=== PATIENT | female | born 1975 | race Two or more races ===

== ENCOUNTER 2016-10-20 15:05 | Emergency (ER) | payer MEDICAID ==
[~2016-10-20] VITALS: Ht 154.9 cm; Wt 59.0 kg
[~2016-10-20 15:05] MED LIST: IBUPROFEN600 MG ORAL; NAPROXEN250 MG ORAL; NKM
[2016-10-20 15:56] LABS: APPEARANCE,URINE SLIGHTLY CLOUDY; KETONES,URINE 2+ (NEGATIVE); LEUKOCYTE ESTERASE ,URINE 2+ (NEGATIVE); NITRITE,URINE NEGATIVE (NEGATIVE); PH,URINE 5 (4.5-8.0); PROTEIN,URINE 3+ (NEGATIVE); UROBILINOGEN,URINE 1 MG/DL (0.0-1.0)
[2016-10-20] MEDS ORDERED: DiphenhydrAMINE 50mg/ml Inj IM ONE (16:15)
[2016-10-20] MEDS ORDERED: Metoclopramide 10mg/2ml Inj IM ONE (16:15)
[2016-10-20] MEDS ORDERED: Ketorolac 30mg Inj IM ONE (16:15)
[2016-10-20 16:16] LABS: BACTERIA,URINE FEW /HPF; SQUAMOUS EPITHELIAL CELL,UR FEW /LPF (NONE/OCC)
[2016-10-20 16:18] LABS: ICTOTEST NEGATIVE
[2016-10-20] MEDS ORDERED: IBUPROFEN600 MG ORAL (16:51)
[2016-10-20] MEDS ORDERED: REGLAN10 MG ORAL (16:51)
--- NOTE | 2016-10-20 17:14 | Emergency Room Report ---
History of Present Illness General Chief Complaint: Headache Source: Patient Present Illness HPI The patient is a 41-year-old female presenting with headache and nausea. Symptoms began 2 days prior and is described as a 10 out of 10 dull ache to the eyes and the back of the head. Also radiates to the neck. She has tried naproxen at home which temporarily helps. She does admit to a history of migraines but has not had one recently. This feels similar. She denies other symptoms including fever, chills, vomiting, chest pain, shortness of breath, numbness or tingling, rash Allergies: Coded Allergies: No Known Allergies (Unverified , 09/13/12) Patient History Past Medical History: see triage record Pertinent Family History: none Reviewed Nursing Documentation: PMH: Agreed, PSxH: Agreed Nursing Documentation-PMH Past Medical History: No Stated History Review of Systems All Other Systems: negative except mentioned in HPI Physical Exam Vital Signs Date Time Temp Pulse Resp B/P Pulse Ox O2 Delivery O2 Flow Rate FiO2 10/20/16 15:20 98.1 82 16 129/70 97 Room Air Sp02 EP Interpretation: reviewed, normal General Appearance: no apparent distress, alert, GCS 15, non-toxic Head: normocephalic, atraumatic Eyes: bilateral eye PERRL, bilateral eye normal inspection ENT: hearing grossly normal, normal pharynx, no angioedema, normal voice Neck: full range of motion, supple/symm/no masses Respiratory: chest non-tender, lungs clear, normal breath sounds, speaking full sentences Cardiovascular #1: regular rate, rhythm, no edema Musculoskeletal: back normal, gait/station normal, normal range of motion, non- tender Neurologic: alert, oriented x3, responsive, motor strength/tone normal, sensory intact, speech normal Psychiatric: judgement/insight normal, memory normal, mood/affect normal, no suicidal/homicidal ideation Skin: normal color, no rash, warm/dry, well hydrated Medical Decision Making PA Attestation Dr. Mackenzie is my supervising physician. Patient management was discussed with my supervising physician Diagnostic Impression: Primary Impression: Migraine headache Qualified Codes: G43.909 - Migraine, unspecified, not intractable, without status migrainosus ER Course The patient is a 41-year-old female presenting with headache and nausea. Differential diagnoses include but not limited to Migraine, tension headache, CVA, cluster SPANGLER, tension SPANGLER, among others PE: vitals WNL. NAD Head is normocephalic atraumatic. Neck is soft and supple. Nontender HEENT exam unremarkable Urinalysis unremarkable. Negative The patient is given IM Toradol, Benadryl, and Reglan. She soon after feels much better. She'll be discharged home with a prescription for Motrin and Reglan. ER precautions are given Laboratory Tests Test 10/20/16 15:39 Urine Color Red Urine Appearance Slightly cloudy Urine pH 5 (4.5-8.0) Urine Specific [place] 1.020 (1.005-1.035) Urine Protein 3+ (NEGATIVE) H Urine Glucose (UA) Negative (NEGATIVE) Urine Ketones 2+ (NEGATIVE) H Urine Occult Blood 5+ (NEGATIVE) H Urine Nitrite Negative (NEGATIVE) Urine Bilirubin 2+ (NEGATIVE) H Urine Ictotest Negative Urine Urobilinogen 1 MG/DL (0.0-1.0) H Urine Leukocyte Esterase 2+ (NEGATIVE) H Urine RBC 10-15 /HPF (0 - 2) H Urine WBC 2-4 /HPF (0 - 2) Urine Squamous Epithelial Cells Few /LPF (NONE/OCC) Urine Bacteria Few /HPF (NONE) Urine HCG, Qualitative Negative Lab Results Impression Not consistent with UTI Last Vital Signs Date Time Temp Pulse Resp B/P Pulse Ox O2 Delivery O2 Flow Rate FiO2 10/20/16 15:20 98.1 82 16 129/70 97 Room Air Status: improved Disposition: HOME, SELF-CARE Condition: Improved Scripts Metoclopramide Hcl* (REGLAN*) 10 Mg Tablet 10 MG ORAL THREE TIMES A DAY, #15 TAB Prov: TERNATIAN,KIMMIE P.A. 10/20/16 Ibuprofen* (MOTRIN*) 600 Mg Tablet 600 MG ORAL Q8H Y for For Pain, #30 TAB 0 Refills Prov: TERZIAN,KIMMIE P.A. 10/20/16 Patient Instructions: Migraine Headache Additional Instructions: I discussed my findings with the patient. All questions and concerns have been answered. Treatment and medication compliance have been addressed. I advised the patient that they need to follow up with PMD in 3-5 days. Return to ED if symptoms worsen, new symptoms arise, or if needed for any reason. Patient verbalized understanding of discharge instructions. KIMMIE STONE Oct 20, 2016 17:14
[2016-10-20 17:15] VITALS: BP 105/67
== END 2016-10-20 17:17 | disposition home or self-care (01) ==
LOC: EMR 15:55
DX: G43.909 Migraine, unspecified, not intractable, without status migrainosus (principal); R11.0 Nausea
CPT/HCPCS: 81003; 81025; 96372; 99284; J1200; J1885; J2765

== ENCOUNTER 2017-08-07 22:11 | Emergency (ER) | payer MEDICAID ==
[~2017-08-07] VITALS: Ht 121.9 cm; Wt 74.8 kg
[~2017-08-07 22:11] MED LIST changes: +REGLAN10 MG ORAL
[2017-08-07 22:48] VITALS: BP 118/59
--- NOTE | 2017-08-07 23:08 | Emergency Room Report ---
History of Present Illness General Chief Complaint: Allergic Reaction Source: Patient Present Illness HPI 41-year-old female p/w rash on face arms abdomen for 2 days. Rash is limited to skin and does not involve mucosal surfaces. ? severe itchiness, no pain. Denies fever or chills, throat swelling, sob. No n/v/d. No new detergents, no exposure to outside grass/plants/poison evelyn, no new pets. Allergies: Coded Allergies: No Known Allergies (Unverified , 09/13/12) Patient History Past Medical History: see triage record Past Surgical History: none Pertinent Family History: none Last Menstrual Period: last sunday Reviewed Nursing Documentation: PMH: Agreed; PSxH: Agreed Nursing Documentation-PMH Past Medical History: No Stated History Review of Systems All Other Systems: negative except mentioned in HPI Physical Exam Vital Signs Date Time Temp Pulse Resp B/P (MAP) Pulse Ox O2 Delivery O2 Flow Rate FiO2 08/07/17 22:14 98.4 77 18 118/59 98 Room Air 98.4 Sp02 EP Interpretation: reviewed, normal General Appearance: alert, GCS 15, non-toxic, mild distress Head: normocephalic, atraumatic Eyes: bilateral eye normal inspection, bilateral eye PERRL, bilateral eye EOMI ENT: normal ENT inspection, normal pharynx, normal voice, moist mucus membranes Neck: normal inspection, full range of motion, supple Respiratory: normal inspection, lungs clear, normal breath sounds, no respiratory distress, no retraction, no wheezing, speaking full sentences, chest symmetrical Cardiovascular #1: normal inspection, regular rate, rhythm, normal capillary refill Cardiovascular #2: 2+ radial (R), 2+ radial (L) Gastrointestinal: normal inspection, non tender, soft, non-distended, no guarding Musculoskeletal: normal inspection, back normal, normal range of motion, non- tender Neurologic: normal inspection, alert, oriented x3, responsive, motor strength/ tone normal, sensory intact, normal gait, speech normal Psychiatric: normal inspection, judgement/insight normal, memory normal Skin: other - Rash noted on face, mostly around chin and cheek, blanching, slightly raised, maculopapular, seem rash also noted on abdomen and arms, nontender Medical Decision Making Diagnostic Impression: Primary Impression: Allergic reaction ER Course 41-year-old female with rash DDX: Allergic reaction vs. eczema vs. contact dermatitis vs. viral exanthem vs cellulitis Plan: Benadryl Decadron ER course: Patient has remained stable in ED No respiratory symptoms, no rapid spread of rash Disposition: Patient will be discharged to home. Strict return precautions discussed with patient such as fever, chills, rapid spread of rash, chest pain, sob, throat swelling, n/v/d. Patient is to follow up with their PMD within 5 days. Patient verbalized understanding and agrees with plan. Please note that this Emergency Department Report was dictated using [employer] sales representative technology software, occasionally this can lead to erroneous entry secondary to interpretation by the dictation equipment Last Vital Signs Date Time Temp Pulse Resp B/P (MAP) Pulse Ox O2 Delivery O2 Flow Rate FiO2 08/07/17 22:48 98.4 77 18 118/59 98 Room Air 98.4 Disposition: HOME, SELF-CARE Condition: Stable Patient Instructions: Allergies, Rash, [id number] Additional Instructions: PLEASE SEE YOUR DOCTOR IN 1 WEEK WITHOUT FAIL Marbin Burns M.D. August 07, 2017 23:08
[2017-08-07] MEDS ORDERED: Dexamethasone 4mg/ml vial IM ONE (23:15)
[2017-08-07 23:47] VITALS: BP 118/59
== END 2017-08-07 23:50 | disposition home or self-care (01) ==
LOC: EMR 22:43
DX: T78.40XA Allergy, unspecified, initial encounter (principal); X58.XXXA Exposure to other specified factors, initial encounter; R21 Rash and other nonspecific skin eruption
CPT/HCPCS: 96372; 99283; J1100

== ENCOUNTER 2018-01-21 21:00 | Emergency (ER) | payer MEDICAID ==
[~2018-01-21] VITALS: Ht 121.9 cm; Wt 72.6 kg
[2018-01-21 21:13] VITALS: BP 109/57
[2018-01-21] MEDS ORDERED: Acetaminophen 500mg (ES) tab ORAL ONE (21:15)
[2018-01-21] MEDS ORDERED: TAMIFLU75 MG ORAL (21:19)
[2018-01-21] MEDS ORDERED: IBUPROFEN600 MG ORAL (21:19)
[2018-01-21] MEDS ORDERED: TYLENOL325 MG ORAL (21:19)
[2018-01-21] MEDS ORDERED: AMOXICILLIN500 MG ORAL (21:19)
--- NOTE | 2018-01-21 21:21 | Emergency Room Report ---
History of Present Illness General Chief Complaint: Flu Like Symptoms Source: Patient Present Illness HPI Patient presents with complaints of sore throat fever cough and congestion Reports that symptoms started 2-3 days ago Patient having diffuse body cramping as well Sore throat is 5 out of 10 worse with swallowing denies any difficulty breathing or shortness of breath denies any recent travel Denies any neck pain or photophobia Denies any focal weakness denies any recent travel Allergies: Coded Allergies: No Known Allergies (Unverified , 09/13/12) Patient History Past Medical History: see triage record Pertinent Family History: none Last Menstrual Period: 01/10/18 Now: No Reviewed Nursing Documentation: PMH: Agreed; PSxH: Agreed Nursing Documentation-PMH Past Medical History: No Stated History Review of Systems All Other Systems: negative except mentioned in HPI Physical Exam Vital Signs Date Time Temp Pulse Resp B/P (MAP) Pulse Ox O2 Delivery O2 Flow Rate FiO2 01/21/18 21:07 102.9 109 16 109/57 97 01/21/18 21:13 Room Air Sp02 EP Interpretation: reviewed, normal General Appearance: well appearing, no apparent distress Head: normocephalic, atraumatic Eyes: bilateral eye PERRL, bilateral eye EOMI ENT: hearing grossly normal, normal voice, TMs + canals normal, uvula midline, pharyngeal erythema Neck: full range of motion, supple, no meningismus, no bony tend Respiratory: lungs clear, normal breath sounds, no rhonchi, no respiratory distress, no retraction, no accessory muscle use Cardiovascular #1: normal peripheral pulses, regular rate, rhythm, no edema, no gallop, no JVD, no murmur Gastrointestinal: normal bowel sounds, non tender, soft, no mass, no organomegaly, non-distended, no guarding, no hernia, no pulsatile mass, no rebound Genitourinary: no CVA tenderness Musculoskeletal: normal inspection Neurologic: oriented x3, responsive, surgical corsetier III-XII nml as tested, motor strength/ tone normal, sensory intact Psychiatric: mood/affect normal Skin: normal color, no rash, warm/dry, palpation normal Lymphatic: normal inspection, no adenopathy Medical Decision Making Diagnostic Impression: Primary Impression: Influenza-like symptoms Additional Impression: pharyngitis ER Course Patient has clinical findings and history consistent with flulike symptoms given the pharyngeal exam however there is evidence of pharyngitis, which appears to be bacterial as well given the erythema Patient provided with Tylenol for the fever here does not appear septic or toxic And is appropriate for initial conservative outpatient trial with appropriate medication Last Vital Signs Date Time Temp Pulse Resp B/P (MAP) Pulse Ox O2 Delivery O2 Flow Rate FiO2 01/21/18 21:13 109 16 Room Air 01/21/18 21:13 103.0 109/57 97 Status: improved Disposition: HOME, SELF-CARE Condition: Improved Scripts Acetaminophen (Tylenol) 325 Mg Tablet 650 MG ORAL Q8HR PRN for Prn Pain/Headache/Temp > 101, #20 TAB 0 Refills Prov: Octavio Gonzalez DO 01/21/18 Ibuprofen* (MOTRIN*) 600 Mg Tablet 600 MG ORAL Q8H PRN for For Pain, #20 TAB 0 Refills Prov: Octavio Gonzalez DO 01/21/18 Amoxicillin* (AMOXIL*) 500 Mg Capsule 500 MG ORAL THREE TIMES A DAY, #21 CAP Prov: Octavio Gonzalez DO 01/21/18 Oseltamivir Phosphate (Tamiflu) 75 Mg Capsule 75 MG ORAL TWICE A DAY for 5 Days, CAP Prov: Octavio Gonzalez DO 01/21/18 Patient Instructions: Influenza, Adult, [id number], Pharyngitis, Yshp-he-Dads Additional Instructions: Patient is provided with the discharge instructions notified to follow up with primary doctor in the next 2-3 days otherwise return to the er with any worsening symptoms. Please note that this report is being documented using [employer] technology. This can lead to erroneous entry secondary to incorrect interpretation by the dictating instrument. Octavio Gonzalez DO Jan 21, 2018 21:21
[2018-01-21 21:28] VITALS: BP 109/57
== END 2018-01-21 21:29 | disposition home or self-care (01) ==
LOC: EMR 21:17
DX: J02.9 Acute pharyngitis, unspecified (principal)
CPT/HCPCS: 99283

== ENCOUNTER 2018-05-22 11:01 | Emergency (ER) | payer MEDICAID ==
[~2018-05-22] VITALS: Ht 152.4 cm; Wt 78.5 kg
[~2018-05-22 11:01] MED LIST changes: +AMOXICILLIN500 MG ORAL; +TAMIFLU75 MG ORAL; +TYLENOL325 MG ORAL
[2018-05-22 11:08] VITALS: BP 97/59
[2018-05-22] MEDS ORDERED: Meclizine 25mg tab ORAL ONE (11:45)
[2018-05-22] MEDS ORDERED: Metoclopramide 10mg/2ml Inj IVP ONE (11:45)
--- NOTE | 2018-05-22 11:56 | NUR ---
ED Nurse Note: PT. AAOX4. AMBULATORY CAME IN TO ER DUE TO N/V SINCE 5AM. PT. DENIES EATING ANYTHING DIFFERENT. DENIES PAIN. DENIES DIARRHEA. PT. IS C/O DIZZINESS
--- NOTE | 2018-05-22 12:00 | NUR ---
ED Nurse Note: TURNED OFF THE LIGHTS TO LESSEN THE ENVIRONMENTAL STIMULUS
[2018-05-22] MEDS ORDERED: ONDANSETRON ODT4 MG BC (12:37)
[2018-05-22] MEDS ORDERED: MECLIZINE HCL25 MG ORAL (12:37)
[2018-05-22 13:09] VITALS: BP 101/55
[2018-05-22 13:10] VITALS: BP 97/59
--- NOTE | 2018-05-23 06:46 | Emergency Room Report ---
History of Present Illness General Chief Complaint: Vomiting Source: Patient Present Illness HPI 42-year-old female presents ED for evaluation. Complaining of dizziness and vomiting. Started this morning. Describes room spinning sensation. Worse with sudden head movements. Notes nausea and vomiting. Denies headache or blurry vision. Denies chest pain or shortness of breath. Denies fevers or chills. No other aggravating relieving factors. Denies any other associated symptoms Allergies: Coded Allergies: No Known Allergies (Unverified , 09/13/12) Patient History Past Medical History: none Past Surgical History: none Pertinent Family History: none Social History: Denies: smoking, alcohol use, drug use Now: No : 3 Immunizations: UTD Reviewed Nursing Documentation: PMH: Agreed; PSxH: Agreed Nursing Documentation-PMH Past Medical History: No Stated History Review of Systems All Other Systems: negative except mentioned in HPI Physical Exam Vital Signs Date Time Temp Pulse Resp B/P (MAP) Pulse Ox O2 Delivery O2 Flow Rate FiO2 05/22/18 11:08 68 19 Room Air 05/22/18 11:08 97.5 97/59 100 Sp02 EP Interpretation: reviewed, normal General Appearance: no apparent distress, alert, GCS 15, non-toxic Head: normocephalic, atraumatic Eyes: bilateral eye normal inspection, bilateral eye PERRL ENT: hearing grossly normal, normal pharynx, no angioedema, normal voice Neck: full range of motion, supple/symm/no masses Respiratory: chest non-tender, lungs clear, normal breath sounds, speaking full sentences Cardiovascular #1: regular rate, rhythm, no edema Cardiovascular #2: 2+ carotid (R), 2+ carotid (L), 2+ radial (R), 2+ radial (L) , 2+ dorsalis pedis (R), 2+ dorsalis pedis (L) Gastrointestinal: normal bowel sounds, non tender, soft, non-distended, no guarding, no rebound Rectal: deferred Genitourinary: normal inspection, no CVA tenderness Musculoskeletal: back normal, gait/station normal, normal range of motion, non- tender Neurologic: alert, oriented x3, responsive, welt sewer III-XII nml as tested, motor strength/tone normal, sensory intact, cerebellar normal, normal gait, speech normal Psychiatric: judgement/insight normal, memory normal, mood/affect normal, no suicidal/homicidal ideation Reflexes: 3+ bicep (R), 3+ bicep (L), 3+ tricep (R), 3+ tricep (L), 3+ knee (R) , 3+ knee (L) Skin: normal color, no rash, warm/dry, well hydrated Lymphatic: no adenopathy Medical Decision Making Diagnostic Impression: Primary Impression: Vertigo ER Course Hospital Course 42 yo F presents with dizziness, vomiting Differential diagnoses include: dehydration, vertigo, syncope Clinical course Patient placed on stretcher. on alarm security or surveillance monitor. After initial history, physical exam reveals middle-aged female in no acute distress. Cranial nerves II through XII intact. Extraocular movements normal. No nuchal rigidity. 5 out of 5 motor strength in all extremities. No ataxia Consideration for vertigo. I ordered IV fluids, Reglan and meclizine Upon reassessment patient states his symptoms have improved. Clinical findings consistent with vertigo. Given lack of risk factors my suspicion for acute processes are low. Discussed findings with patient. Safe for discharge with close outpatient follow-up. We'll provide referrals I. I feel this is a highly complex case requiring extensive working including EKG/Rhythm strip, Xray/CT/US, Blood/urine lab work, repeat exams while in ED, and administration of strong opiates/narcotics for pain control, admission to hospital or close patient follow up. Diagnosis - vertigo stable and discharged to home with prescription for meclizine, zofran. Followup with PMD. Return to ED if symptoms recur or worsen Last Vital Signs Date Time Temp Pulse Resp B/P (MAP) Pulse Ox O2 Delivery O2 Flow Rate FiO2 05/22/18 13:10 97.5 68 19 97/59 100 Room Air Status: improved Disposition: HOME, SELF-CARE Condition: Stable Scripts Meclizine Hcl* (MECLIZINE*) 25 Mg Tablet 25 MG ORAL THREE TIMES A DAY for 7 Days, TAB Prov: Javon Centeno MD 05/22/18 Ondansetron Odt* (ZOFRAN ODT*) 4 Mg Tab.rapdis 4 MG BC EVERY 8 HOURS, #10 TAB 0 Refills Prov: Javon Centeno MD 05/22/18 Referrals: NOT CHOSEN IPA/,REFERRING (PCP) [facility] Patient Instructions: Vertigo, [id number], Bteo Maneuver Self-Care Javon Centeno MD May 23, 2018 06:46
== END 2018-05-22 13:14 | disposition home or self-care (01) ==
LOC: EMR 11:22
DX: R42 Dizziness and giddiness (principal); R11.10 Vomiting, unspecified
CPT/HCPCS: 96361; 96374; 99284; J2765

== ENCOUNTER 2019-09-24 20:36 | Emergency (ER) | payer MEDICAID ==
[~2019-09-24] VITALS: Ht 160 cm; Wt 76.2 kg
[~2019-09-24 20:36] MED LIST changes: +MECLIZINE HCL25 MG ORAL; +ONDANSETRON ODT4 MG BC
[2019-09-24 20:44] VITALS: BP 127/78
--- NOTE | 2019-09-24 21:09 | Emergency Room Report ---
History of Present Illness General Chief Complaint: Upper Respiratory Illness Source: Patient Present Illness HPI 44-year-old female with no signal past medical history here complaining of 3 days of body aches, fever and chills, and few bouts of nonbloody diarrhea. Denies any chest pain, cough and congestion, shortness of breath. Denies any headache and dizziness at this time. Complains of 3 out of 10 sore throat that started today. Reports that she has been staying home with her kids and the whole time. Denies sick contact. Denies coming contact with someone who is covered positive. Patient appears to be febrile upon arrival with temperature of 100 F. O2 sat within normal limits. Has not taken medication in the Motrin for symptom relief. Denies . Denies loss of taste and smell. Allergies: Coded Allergies: No Known Allergies (Unverified , 09/13/12) COVID-19 Screening Contact w/high risk pt: Yes Experienced COVID-19 symptoms?: Yes COVID-19 Testing performed COMPUTER TESTER: No Patient History Past Medical History: see triage record Past Surgical History: none Pertinent Family History: none Now: No Immunizations: UTD Reviewed Nursing Documentation: PMH: Agreed; PSxH: Agreed Nursing Documentation-PMH Past Medical History: No Stated History Review of Systems All Other Systems: negative except mentioned in HPI Physical Exam Vital Signs Date Time Temp Pulse Resp B/P (MAP) Pulse Ox O2 Delivery O2 Flow Rate FiO2 09/24/19 20:38 100.8 104 18 127/78 (94) 96 Room Air Sp02 EP Interpretation: abnormal - Temp of 100 F General Appearance: no apparent distress, alert, GCS 15, non-toxic Head: normocephalic, atraumatic Eyes: bilateral eye normal inspection, bilateral eye PERRL ENT: hearing grossly normal, normal pharynx, no angioedema, normal voice Neck: full range of motion, supple/symm/no masses Respiratory: chest non-tender, lungs clear, normal breath sounds, no rhonchi, speaking full sentences Cardiovascular #1: regular rate, rhythm, no edema, no murmur Gastrointestinal: normal bowel sounds, non tender, soft, non-distended, no guarding, no rebound Rectal: deferred Genitourinary: no CVA tenderness Musculoskeletal: back normal Neurologic: alert, motor strength/tone normal, oriented x3, sensory intact, responsive, speech normal Psychiatric: judgement/insight normal, memory normal, mood/affect normal, no suicidal/homicidal ideation Skin: no rash Lymphatic: no adenopathy Medical Decision Making PA Attestation All my diagnosis and treatment plans were reviewed ad discussed with my supervising physician Dr. Mckeon Diagnostic Impression: Primary Impression: Suspected COVID-19 virus infection Additional Impression: URI (upper respiratory infection) ER Course 44-year-old female with no signal past medical history here complaining of 3 days of body aches, fever and chills, and few bouts of nonbloody diarrhea. Denies any chest pain, cough and congestion, shortness of breath. Denies any headache and dizziness at this time. Complains of 3 out of 10 sore throat that started today. Reports that she has been staying home with her kids and the whole time. Denies sick contact. Denies coming contact with someone who is covered positive. Patient appears to be febrile upon arrival with temperature of 100 F. O2 sat within normal limits. Has not taken medication in the Motrin for symptom relief. Denies . Denies loss of taste and smell. Ddx considered but are not limited to: strep pharyngitis, URI, tonsillitis, peritonsillar abscess, influneza, suspected coronavirus Vital signs: are WNL, pt. is afebrile H&PE are most consistent with: Suspected coronavirus ORDERS: Chest x-ray, Zofran, prednisone, azithromycin, chest x-ray, Tylenol ED INTERVENTIONS: None required at this time. DISCHARGE: At this time pt. is stable for d/c to home. Will provide printed patient care instructions, and any necessary prescriptions. Care plan and follow up instructions have been discussed with the patient prior to discharge. Patient to self quarantine for 14 days, get tested for COVID at [facility]. 401. Take medication as directed, worsening symptoms return to the emergency room. Chest X-Ray Diagnostic Results Chest X-Ray Diagnostic Results : Chest X-Ray Ordered: Yes # of Views/Limited/Complete: 1 View Indication: Other EP Interpretation: Yes CORTEZ Xray: Interpretation reviewed, by supervising MD, and agrees with findings. Interpretation: no consolidation, no effusion, no pneumothorax Impression: No acute disease Electronically Signed by: Nahal Saheli PA-C Last Vital Signs Date Time Temp Pulse Resp B/P (MAP) Pulse Ox O2 Delivery O2 Flow Rate FiO2 09/24/19 20:44 102 18 09/24/19 20:44 100.8 127/78 96 Room Air Disposition: HOME, SELF-CARE Condition: Stable Scripts Ondansetron (Zofran) 4 Mg Tablet 4 MG ORAL Q6H PRN for Nausea & Vomiting, #14 TAB Prov: Nigel Claudio 09/24/19 Acetaminophen* (TYLENOL EXTRA STRENGTH*) 500 Mg Tablet 500 MG ORAL Q8H PRN for Prn Headache/Temp > 101, #30 TAB 0 Refills Prov: Nigel Claudio 09/24/19 Azithromycin* (ZITHROMAX*) 250 Mg Tablet 250 MG ORAL DAILY, #6 TAB 0 Refills Take two tables once daily for 1 day, then one tablet once daily for 4 days. Prov: Nigel Claudio 09/24/19 Patient Instructions: Upper Respiratory Infection, Adult Additional Instructions: Take medication as directed, follow-up with your primary care provider, self isolate for 14 days, I recommend he get tested for call back. If worsening symptoms return to emergency room Nigel Claudio Sep 24, 2019 21:09
[2019-09-24] MEDS ORDERED: PREDNISONE20 MG ORAL (21:11)
[2019-09-24] MEDS ORDERED: ZITHROMAX250 MG ORAL (21:11)
[2019-09-24] MEDS ORDERED: TYLENOL EXTRA500 MG ORAL (21:11)
[2019-09-24] MEDS ORDERED: ZOFRAN4 M1 ORAL (21:19)
[2019-09-24 21:21] VITALS: BP 133/75
--- NOTE | 2019-09-25 13:23 | Diagnostic Imaging Report ---
Indication: Shortness of breath Technique: One view of the chest Comparison: 09/13/2012 Findings: Lungs and pleural spaces are clear. Heart size is normal. Inspiration is suboptimal. No significant change Impression: No acute process
== END 2019-09-24 21:21 | disposition home or self-care (01) ==
LOC: EMR 21:09
DX: J06.9 Acute upper respiratory infection, unspecified (principal); R19.7 Diarrhea, unspecified
CPT/HCPCS: 71045; Z7502; 99283